=== PATIENT | male | born 1985 ===

== ENCOUNTER 2017-09-10 09:46 | Outpatient (CLI) | payer BC ==
--- NOTE | 2017-09-10 13:45 | XRay Report ---
Lumbar spine series: Low back pain. There is mild posterior articular spondylosis at the L3-4 and L4-5 levels. There is narrowing of the L4-5 interspace. There is a small nondisplaced chronic avulsion of bone at the inferior anterior articular margin of L3. Vertebral alignment is maintained and vertebral height is relatively maintained. Apophyseal narrowing at L5-S1 is suspected but not well visualized. Impression: Degenerative appearing changes from L3-L5 most significant at L4-5. The L3 avulsion most likely secondary to old injury.
== END 2017-09-10 09:47 | disposition home or self-care (01) ==
LOC: SPVIMAG 09:46
PROVIDERS: ATTEND Internal Medicine
DX: S32.039A Unspecified fracture of third lumbar vertebra, initial encounter for closed fracture (principal); M47.896 Other spondylosis, lumbar region; X58.XXXA Exposure to other specified factors, initial encounter; Y93.89 Activity, other specified; Y92.89 Other specified places as the place of occurrence of the external cause; Y99.8 Other external cause status
CPT/HCPCS: 72100